=== PATIENT | male | born 1970 | race Caucasian/White ===

== ENCOUNTER 2018-12-06 08:20 | Outpatient (CLI) | payer BC ==
--- NOTE | 2018-12-06 09:30 | MRI ---
MRI OF THE LEFT FOOT WITHOUT CONTRAST: INDICATION: Left foot pain since August OF 2018. COMPARISON: None. FINDINGS: Motion artifact slightly limits image detail. There is prominent tendinosis and complete disruption of the peroneus longus tendon with retraction t o the level of the lateral calcaneus. Peroneus brevis is intact. There is moderate peroneal tenosynovitis. There is [id number] tenosynovitis involving the FHL and FDL extending from the k not of Ricardo proximally through the level of the medial retinaculum and posterior to the tibiotalar joint. The posterior tibialis tendon appears within normal limits. The extensor tendons are normal ap pearing. No definite osteochondral defect is seen involving the talar dome. Lisfranc ligament is intact. No acute fracture is demonstrated. IMPRESSION: 1. Prominent tendinosis and complete disruption of the peroneus longus tendon with retraction of the tendon to the level of the lateral mid calcaneus. There is moderate peroneal tenosynovitis. 2. [id number] tenosynovitis of the FHL and the FDL, extending from knot of Ricardo proximally to the level of the posterior tibiotalar joint. Transcribed Date/Time: 12/06/2018 10:20 AM
== END 2018-12-06 08:21 | disposition home or self-care (01) ==
LOC: TBSIIMAG 08:20
PROVIDERS: ATTEND Podiatrist Foot & Ankle Surgery
DX: M76.72 Peroneal tendinitis, left leg (principal); M67.874 Other specified disorders of tendon, left ankle and foot